=== PATIENT | female | born 1985 | race Two or more races ===

== ENCOUNTER 2017-08-02 00:45 | Inpatient (IN) | payer OTHER ==
[2017-08-02] MEDS ORDERED: AMPICILLIN - 2 GM in SODIUM CHLORIDE 100 ML IVPB ONE (05:30)
[2017-08-02] MEDS ORDERED: PROMETHAZINE HCL 25 MG/1 ML VIAL IVPB PRN (05:30)
[2017-08-02] MEDS ORDERED: BUTORPHANOL TARTRATE 1 MG/ML VIAL IVPB PRN (05:30)
[2017-08-02] MEDS ORDERED: DEXTROSE 5%-LACTATED RINGERS 1,000 ML IV SCH ×2 (05:30→08:30)
[2017-08-02] MEDS ORDERED: AMPICILLIN SODIUM 2 GM VIAL ONE (05:44)
[2017-08-02 06:01] LABS: BASO % 0.2 % (0-2.0); EOS % 0.5 % (0-4.5); HEMATOCRIT 36.9 % (32.4-45.2); HEMOGLOBIN 12.3 GM/dL (10.7-15.3); LYMPH % 12.2 % (8-40); MCH 29.3 pg (25.7-33.7); MCHC 33.5 g/dl (32.0-36.0); MEAN CELL VOLUME 87.5 fl (80-96); MEAN PLT VOLUME 9.9 fl (7.5-11.1); MONO % 3.4 % (3.8-10.2); NEUT % 83.7 % (42.8-82.8); PLATELET COUNT 168 K/MM3 (134-434); RBC 4.21 M/mm3 (3.60-5.2)
[2017-08-02 06:13] LABS: INR 0.96 (0.82-1.09); PROTHROMBIN TIME (PATIENT) 10.8 SEC (9.98-11.88)
[2017-08-02 06:16] LABS: ACTIVATED PTT 30.1 SECONDS (26.9-34.4)
[2017-08-02 06:27] VITALS: BMI 33.3
[2017-08-02 06:37] LABS: ANION GAP 13 (8-16); BLOOD UREA NITROGEN 9 mg/dL (7-18); CALCIUM 8.3 mg/dL (8.5-10.1); CHLORIDE 101 mmol/L (98-107); CO2 19 mmol/L (21-32); CREATININE 0.7 mg/dL (0.55-1.02); GLUCOSE,RANDOM 88 mg/dL (74-106); SODIUM 133 mmol/L (136-145)
[2017-08-02 06:43] LABS: POTASSIUM 4.3 mmol/L (3.5-5.1)
[2017-08-02] MEDS ORDERED: BUTORPHANOL TARTRATE 1 MG/ML VIAL ONE ×2 (06:54)
[2017-08-02] MEDS ORDERED: PROMETHAZINE HCL 25 MG/1 ML VIAL ONE (06:55)
--- NOTE | 2017-08-02 08:30 | HP ---
Past Medical History - Primary Care Physician PCP:: Brock Morillo - Admission Chief Complaint: 31yo P1 with at EGA 38w 1d admitted with spontaneous labor. History of Present Illness: no SROM. Painful ctx's since 8pm on 08/01/2017. 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: Alzheimer's, CVA, Dementia, Migraine, Multiple Sclerosis, Peripheral Neuropathy, Parkinson's, Seizure, Syncope, TIA, Vertigo, Other Cardiovascular: No: AFIB, Aneurysm, Aortic Insufficiency, Aortic Stenosis, CAD, CHF, Deep Vein Thrombosis, HTN, Hyperlipdemia, [place], Mitral Insufficiency, Mitral Stenosis, Murmur, Pulmonary Hypertension, Other Pulmonary: Yes: Asthma Gastrointestinal: No: Ascites, Cancer, Constipation, Crohn's Disease, Diverticulitis, Diverticulosis, Esophageal Varices, Gastritis, GERD, GI Bleed, Hemorrhoids, Hiatal Hernia, Inflamatory Bowel Disease, Irritable Bowel Disease, Pancreatitis, Peptic Ulcer Disease, Ulcerative Colitis, Other Hepatobiliary: No: Cirrhosis, Cholelithiasis, Cholecystitis, Choledocholithiasis , Hepatitis A, Hepatitis B, Hepatitis C, Other Renal/: No: Renal Failure, Renal Inusuff, BPH, Cancer, Hematuria, Hemodialysis , Neurogenic Bladder, Renal Calculi, UTI, Other Reproductive: No: Ectopic , Endometriosis, Fibroids, PID, Polycystic Ovary Syndrome, Postmenopausal, Other ...: 2 ...Para: 1 ...Term: 1 ...LMP: 11/07/16 ... Weeks Gestation by Dates: 38.0 ...EDC by Dates: 08/14/17 Heme/Onc: No: Anemia, B12 Deficiency, Bleeding Disorder, Cancer, Current Chemotherapy, Current Radiation Therapy, Hemochromatosis, Hypercoaguable State, Myeloproliferative Synd, Sickle Cell Disease, Sickle Cell Trait, Thrombocytopenia, Other Infectious Disease: No: AIDS, C-Diff, Herpes Zoster, HIV, MRSA, STD's, Tuberculosis, VREF, Other Psych: No: Addictions, Anxiety, Bipolar, Depression, Panic, Psychosis, Schizophrenia, Other Musculoskeletal: No: Bursitis, Chronic low back pain, Hemiparesis, Hemiplegia, Osteoarthritis, Paraplegia, Other Rheumatology: No: Fibromyalgia, Gout, Lupus, Rheumatoid Arthritis, Sarcoidosis, Vasculitis, Other ENT: No: Allergic Rhinitis, Sinusitis, Other Endocrine: No: [place]'s Disease, Rafat's Disease, Diabetes Insipidus, Diabetes Mellitus, Hyperparathyroidism, Hyperthyroidism, Hypothyroidism, Osteopenia, SIADH, Other Dermatology: No: Basal Cell, Cellulitis, Eczema, Melanoma, Psoriasis, Squamous Cell, Other - Past Surgical History Past Surgical History: Yes: None Hx Myomectomy: No Hx Transabdominal Cerclage: No - Smoking History Smoking history: Never smoked Have you smoked in the past 12 months: No - Alcohol/Substance Use Hx Alcohol Use: No History of Substance Use: reports: None - Social History Usual Living Arrangement: Yes: With Spouse, With Child ADL: Independent History of Recent Travel: No Home Medications - Allergies Allergies/Adverse Reactions: Allergies Allergy/AdvReac Type Severity Reaction Status Date / Time No Known Allergies Allergy Verified 08/02/17 06:50 - Home Medications Home Medications: Ambulatory Orders Vit Calc,Iron,Folic [ Vitamins] 1 each PO DAILY 08/02/17 Family Disease History - Family Disease History Family Disease History: Diabetes: Mother (HTN), Other: Mother Review of Systems - Review of Systems Constitutional: reports: No Symptoms Eyes: reports: No Symptoms HENT: reports: No Symptoms Neck: reports: No Symptoms Cardiovascular: reports: No Symptoms Respiratory: reports: No Symptoms Gastrointestinal: reports: No Symptoms Genitourinary: reports: No Symptoms Breasts: reports: No Symptoms Reported Musculoskeletal: reports: No Symptoms Integumentary: reports: No Symptoms Neurological: reports: No Symptoms Endocrine: reports: No Symptoms Hematology/Lymphatic: reports: No Symptoms Psychiatric: reports: No Symptoms Pain Intensity: 7 Physical Exam - Maternity Vital Signs: Vital Signs Temperature 97.9 F 08/02/17 08:00 Pulse Rate 87 08/02/17 08:00 Respiratory Rate 08/02/17 08:00 Blood Pressure 128/87 08/02/17 08:00 O2 Sat by Pulse Oximetry (%) Constitutional: Yes: Well Nourished, No Distress, Calm Eyes: Yes: WNL, Conjunctiva Clear HENT: Yes: WNL, Atraumatic, Normocephalic Neck: Yes: WNL, Supple, Trachea Midline Cardiovascular: Yes: WNL, Regular Rate and Rhythm Lungs: Clear to auscultation, Normal air movement Breast(s): Yes: WNL - Abdominal Exam/OB Fundal Height: 38 Number of Fetuses: Single Presentation: Vertex Contractions: Yes Regularity: Regular (8-9min) Intensity: Mild/Mod Monitor Mode: External Heart Rate (range): 145 Heart Rate Location: Midline Category: II (minimal variability after Stadol, no decels, (+) accels) Accelerations: Non-Uniform Decelerations: None - Vaginal Exam/OB Vaginal Bleediing: No Speculum Exam: No Dilatation (cm): 7 Effacement (%): 80 Amniotic Membrane Status: Ruptured (AROM on exam) Amniotic Fluid: Yes: Clear Presentation: Vertex/Position Station: -1 (Adequate pelvimetry) - Physical Exam Musculoskeletal: Yes: WNL Extremities: Yes: WNL Edema: No Integumentary: Yes: WNL Deep Tendon Reflex Grade: Normal +2 ...Motor Strength: WNL Psychiatric: Yes: WNL, Alert, Oriented - Labs Lab Results: CBC, BMP 08/02/17 05:45 08/02/17 05:45 Hemorrhage Risk Assessment - Risk Factors Medium Risk Factors: Yes: None High Risk Factors: Yes: None Risk Score: 1 Risk Level: Medium Risk Imaging - Results Ultrasound: Report Reviewed Assessment/Plan 31yo P1 with at EGA 38w 1d admitted with spontaneous labor. Pt progressed to active labor but contractions are inadequte. Plan to monitor labor progress after AROM. Will consider pitocin to augment ctx's. Anticipate .
[2017-08-02] MEDS ORDERED: OXYTOCIN 15 UNITS/ LR 250 ML 15 UNIT/250 ML INFUS.BAG IVPB ONE (08:31)
[2017-08-02] MEDS ORDERED: OXYTOCIN 15 UNITS/ LR 250 ML 15 UNIT/250 ML INFUS.BAG IVPB SCH (08:45)
[2017-08-02] MEDS ORDERED: FENTANYL/BUPIVACAINE/NS/PF - PCEA - 50 ML DISP.SYRIN EP ONE (09:05)
[2017-08-02] MEDS ORDERED: AMPICILLIN SODIUM 1 GM VIAL ONE (09:26)
[2017-08-02] MEDS ORDERED: NALOXONE HCL 0.4 MG/ML VIAL IVPUSH PRN (10:00)
[2017-08-02] MEDS ORDERED: FENTANYL/BUPIVACAINE/NS/PF - PCEA - 50 ML DISP.SYRIN EP SCH ×2 (10:00→11:00)
[2017-08-02] MEDS: AMPICILLIN - 1 GM in SODIUM CHLORIDE 100 ML IVPB SCH ×2 (10:00→13:38)
[2017-08-02] MEDS: PRENATAL VITAMINS W/ FOLIC ACID TABLET (FP) PO SCH (10:39)
[2017-08-02] MEDS ORDERED: OXYTOCIN 20 UNITS in 0.9% NS 20 UNIT/1,000 ML INFUS.BAG IV ONE (12:00)
[2017-08-02] MEDS ORDERED: BISACODYL 10 MG SUPP.RECT RC PRN (14:00)
[2017-08-02] MEDS ORDERED: BENZOCAINE 20% 57 GM BOTTLE TP PRN (14:00)
[2017-08-02] MEDS ORDERED: METHYLERGONOVINE MALEATE 0.2 MG/1 ML AMP IM PRN (14:00)
[2017-08-02] MEDS ORDERED: BENZOCAINE 28 GM HEMORRHOIDAL OINTMENT TP PRN (14:00)
[2017-08-02] MEDS ORDERED: OXYTOCIN 20 UNITS in 0.9% NS 20 UNIT/1,000 ML INFUS.BAG IV SCH (14:00)
[2017-08-02] MEDS ORDERED: WITCH HAZEL 50% (TUCKS) 40 PAD/JAR PAD TP PRN (14:00)
--- NOTE | 2017-08-02 15:40 | PN ---
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
[2017-08-03] MEDS: ACETAMINOPHEN 325 MG TABLET (FP) PO PRN (06:09)
[2017-08-03] MEDS: IBUPROFEN 600 MG TABLET (FP) PO PRN (06:11)
[2017-08-03 08:24] VITALS: TEMP 97.8
[2017-08-03] MEDS: PRENATAL VITAMINS W/ FOLIC ACID TABLET (FP) PO SCH (09:34)
[2017-08-03 10:17] LABS: EOS % 1.8 % (0-4.5); HEMATOCRIT 35.4 % (32.4-45.2); HEMOGLOBIN 11.6 GM/dL (10.7-15.3); LYMPH % 16.6 % (8-40); MCHC 32.7 g/dl (32.0-36.0); MEAN CELL VOLUME 88.8 fl (80-96); MEAN PLT VOLUME 9.7 fl (7.5-11.1); MONO % 4.2 % (3.8-10.2); NEUT % 76.4 % (42.8-82.8); PLATELET COUNT 157 K/MM3 (134-434); RBC 3.99 M/mm3 (3.60-5.2); RDW 13.7 % (11.6-15.6); WHITE BLOOD COUNT 13.7 K/mm3 (4.0-10.0)
[2017-08-03] MEDS ORDERED: SENNOSIDES/DOCUSATE COMBO (SENNA PLUS) TABLET (UD) PO PRN (14:00)
--- NOTE | 2017-08-03 15:51 | PN ---
Progress Note (short form) - Note Progress Note: ppd1 doing well, no excess vaginal bleeding CBC, BMP 08/03/17 09:25 08/02/17 05:45 Last Vital Signs Temp Pulse Resp BP Pulse Ox 97.8 F 75 20 98/66 100 08/03/17 08:24 08/03/17 08:24 08/03/17 08:24 08/03/17 08:24 08/02/17 12:00 abdomen soft, uterus firm, non tender no cva lochia mild no calf tenderness plan ambulate, d/c home in am
[2017-08-04] MEDS: ACETAMINOPHEN 325 MG TABLET (FP) PO PRN ×2 (01:13→06:13)
[2017-08-04] MEDS: IBUPROFEN 600 MG TABLET (FP) PO PRN ×2 (01:14→06:14)
--- NOTE | 2017-08-04 08:04 | DS ---
Physical Exam-GROUP SOCIAL WORKER Vital Signs: Vital Signs Temperature 97.8 F 08/03/17 21:48 Pulse Rate 82 08/03/17 21:48 Respiratory Rate 20 08/03/17 21:48 Blood Pressure 129/80 08/03/17 21:48 O2 Sat by Pulse Oximetry (%) 100 08/02/17 12:00 Constitutional: Yes: Well Nourished, No Distress, Calm Eyes: Yes: WNL, Conjunctiva Clear, EOM Intact HENT: Yes: WNL, Atraumatic, Normocephalic Neck: Yes: WNL, Supple, Trachea Midline Cardiovascular: Yes: WNL, Regular Rate and Rhythm Respiratory: Yes: WNL, Regular, CTA Bilaterally Gastrointestinal: Yes: WNL ...Rectal Exam: Yes: WNL Renal/: Yes: WNL External Genitalia: Yes: Normal ....Post : Yes: Uterus firm, Uterus non-tender, Slight lochia rubra Breast(s): Yes: WNL Musculoskeletal: Yes: WNL Extremities: Yes: WNL Edema: No Integumentary: Yes: WNL Neurological: Yes: WNL, Alert, Oriented ...Motor Strength: WNL Psychiatric: Yes: WNL, Alert, Oriented Labs: CBC, BMP 08/03/17 09:25 08/02/17 05:45 Delivery - Delivery Vaginal Delivery: No Problems, Spontaneous Type of Anesthesia: Epidural Episiotomy/Laceration: Perineal Extension/lac, 1st degree EBL (cc): 300 Delivery, Single - Stages of Labor Date 1st Stage Initiatied: 08/01/17 Time 1st Stage Initiated: 20:00 Date 2nd Stage Initiated: 08/02/17 Time 2nd Stage Initiated: 11:48 Date of Delivery: 08/02/17 Time of Delivery: 12:13 Time Placenta Delivered: 12:15 Placenta: Yes: Spontaneous, Normal Configuration - Condition of Supervisor Coffee/Permastone Mechanic Present: No Infant Gender: Female Weight: 6 lb 5 oz Position: Left, OA Total Hours ROM (Hrs/Mins): 4 HOURS 7 MINUTES - 1 Minute Total Score: 9 5 Minutes Total Score: 9 - Feeding Plan Initial Plan: Exclusive throughout hospitalization Discharge Summary Reason For Visit: LABOR ADMIT Procedures: Principal: Condition: Good - Instructions Diet, Activity, Other Instructions: regular diet, no intercourse , follow up office 4 weeks Referrals: Brock Morillo MD [Family Provider] - Disposition: HOME - Home Medications Comprehensive Discharge Medication List: Ambulatory Orders Vit Calc,Iron,Folic [ Vitamins] 1 each PO DAILY 08/02/17
[2017-08-04 08:15] VITALS: BP 117/77; PULSE 75
[2017-08-04] MEDS: PRENATAL VITAMINS W/ FOLIC ACID TABLET (FP) PO SCH (09:31)
== END 2017-08-04 11:45 | disposition home or self-care (01) | DRG 775 ==
LOC: JDEL 00:45 → JLDR 05:30 → J3W 13:47
PROVIDERS: ADMIT Obstetrics & Gynecology; ATTEND Obstetrics & Gynecology
PROC: 10E0XZZ Delivery of Products of Conception, External Approach (ICD-10-PCS; principal; 2017-08-02)
PROC: 0HQ9XZZ Repair Perineum Skin, External Approach (ICD-10-PCS; 2017-08-02)
DX: O99.824 Streptococcus B carrier state complicating childbirth (principal); O70.1 Second degree perineal laceration during delivery; Z37.0 Single live birth; Z3A.38 38 weeks gestation of pregnancy
CPT/HCPCS: 36415; 59025; 59409; 80048; 85025; 85610; 85730; 86593; 86850; 86900; 86901